=== PATIENT | female | born 1990 | race Caucasian/White ===

== ENCOUNTER 2019-02-15 21:07 | Emergency (ER) | payer OTHER ==
[2019-02-15 21:12] VITALS: BP 112/71; PULSE 80; TEMP 98; BMI 29.2
--- NOTE | 2019-02-15 21:12 | PDOC ---
Rapid Medical Evaluation Time Seen by Provider: 02/15/19 21:09 Medical Evaluation: 02/15/19 21:09 I have performed a brief in-person evaluation of this patient. The patient presents with a chief complaint of: 4-5 days of dizziness, "stabbing" pain between R side of chest and arm, intermittent ESPINOZA, denies PMH. reports hx of ESPINOZA in the past "like, normally". 8/10 pain in ED. denies photophobia Hx of plastic surgery (breast and tummy tuck) 5 years ago. Pertinent physical exam findings: well appearing, NAD, VSS I have ordered the following: EKG The patient will proceed to the ED for further evaluation.
--- NOTE | 2019-02-15 23:04 | PDOC ---
*Physical Exam - Vital Signs Last Vital Signs Temp Pulse Resp BP Pulse Ox 98 F 80 18 112/71 100 02/15/19 21:11 02/15/19 21:11 02/15/19 21:11 02/15/19 21:11 02/15/19 21:11 ED Treatment Course - LABORATORY CBC & Chemistry Diagram: 02/16/19 01:10 Medical Decision Making - Medical Decision Making 02/15/19 23:04 Patient seen by the advanced practice provider under my direct supervision. Ancillary testing reviewed as necessary. I agree with plan as outlined by the advanced practice provider. *DC/Admit/Observation/Transfer Diagnosis at time of Disposition: Lightheaded - Discharge Dispostion Disposition: HOME Condition at time of disposition: Stable - Referrals - Patient Instructions Printed Discharge Instructions: DI for Dizziness-Nonvertigo Additional Instructions: Thank you for choosing [facility]. It was a pleasure taking care of you. Your labs were normal Your EKG appeared abnormal (this could be your baseline), but recommend you follow-up with your doctor Return to the Emergency Department if your symptoms worsen or persist, you have fever, shortness of breath, chest pain, severe abdominal pain, vomiting or other concerning symptoms. - Post Discharge Activity
--- NOTE | 2019-02-16 00:33 | PDOC ---
History of Present Illness - General Chief Complaint: Lightheaded Stated Complaint: PAIN Time Seen by Provider: 02/15/19 21:09 History Source: Patient Exam Limitations: No Limitations Past History - Past Medical History Allergies/Adverse Reactions: Allergies Allergy/AdvReac Type Severity Reaction Status Date / Time No Known Allergies Allergy Verified 02/15/19 21:10 COPD: No - Suicide/Smoking/Psychosocial Hx Smoking History: Never smoked *Physical Exam - Vital Signs Last Vital Signs Temp Pulse Resp BP Pulse Ox 98 F 80 18 112/71 100 02/15/19 21:11 02/15/19 21:11 02/15/19 21:11 02/15/19 21:11 02/15/19 21:11 - Physical Exam General Appearance: No: Apparent Distress Respiratory/Chest: positive: Lungs Clear, Normal Breath Sounds. negative: Chest Tender, Respiratory Distress Cardiovascular: positive: Regular Rhythm, Regular Rate, S1, S2. negative: Murmur Gastrointestinal/Abdominal: positive: Normal Bowel Sounds, Soft. negative: Tender, Distended, Guarding, Rebound Extremity: negative: Swelling, Calf Tenderness Integumentary: positive: Normal Color Neurologic: positive: curriculum supervisor II-XII NML intact, Fully Oriented, Alert, Normal Mood/ Affect, Motor Strength / ED Treatment Course - LABORATORY CBC & Chemistry Diagram: 02/16/19 01:10 - ADDITIONAL ORDERS Additional order review: Laboratory Results 02/15/19 02/15/19 23:50 23:50 D-Dimer 269 Urine HCG, Qual Negative - RADIOLOGY Radiology Studies Ordered: Category Date Time Status CHEST PA & LAT [RAD] Stat Radiology 02/16/19 00:26 Ordered Medical Decision Making - Medical Decision Making 28 y/o F with no sig pmh presents with feeling lightheaded x 1 week along with mild nausea. Also rarely, will feel intermittent R shoulder pain radiating to chest; CP is not exertional and comes on randomly without any worsening or alleviating factors. Denies fever, cough, URI sxs, abd pain, n/v/d, urinary complaints, numbness/tingling/weakness of extremities. Denies smoking or drug use. Is on BCP. Denies recent travel UCG negative D-dimer negative EKG shows TWI leads III, aVF, V3 and V4 No prior EKG available for comparison Will repeat EKG; CXR pending 02/16/19 00:31 CXR negative Trop negative Repeat EKG unchanged Heart score of 1 Not suspicious for ACS Given copy of EKG Advised f/u with her PCP 02/16/19 02:34 *DC/Admit/Observation/Transfer Diagnosis at time of Disposition: Lightheaded - Discharge Dispostion Disposition: HOME Condition at time of disposition: Stable Decision to Admit order: No - Referrals - Patient Instructions Printed Discharge Instructions: DI for Dizziness-Nonvertigo Additional Instructions: Thank you for choosing [facility]. It was a pleasure taking care of you. Your labs were normal Your EKG appeared abnormal (this could be your baseline), but recommend you follow-up with your doctor Return to the Emergency Department if your symptoms worsen or persist, you have fever, shortness of breath, chest pain, severe abdominal pain, vomiting or other concerning symptoms. - Post Discharge Activity
[2019-02-16 02:05] LABS: ANION GAP 8 MMOL/L (8-16); BLOOD UREA NITROGEN 14 mg/dL (7-18); CALCIUM 8.7 mg/dL (8.5-10.1); CHLORIDE 108 mmol/L (98-107); CO2 22 mmol/L (21-32); CREATININE 0.5 mg/dL (0.55-1.3); GLUCOSE,RANDOM 79 mg/dL (74-106); POTASSIUM 3.7 mmol/L (3.5-5.1); SODIUM 138 mmol/L (136-145)
--- NOTE | 2019-02-16 13:11 | EKG ---
Test Reason : Blood Pressure : / mmHG Vent. Rate : 071 BPM Atrial Rate : 071 BPM P-R Int : 194 ms QRS Dur : 078 ms QT Int : 386 ms P-R-T Axes : 019 -03 -20 degrees QTc Int : 419 ms NORMAL SINUS RHYTHM SEPTAL INFARCT (CITED ON OR BEFORE 15-FEB-2019) ABNORMAL ECG WHEN COMPARED WITH ECG OF 15-FEB-2019 22:51, NO SIGNIFICANT CHANGE WAS FOUND Confirmed by MARILYN CALZADA, BRAXTON ([id number]) on 02/16/2019 1:11:23 PM Referred By: Confirmed By:BRAXTON SANDERS MD
--- NOTE | 2019-02-16 13:12 | EKG ---
Test Reason : Blood Pressure : / mmHG Vent. Rate : 065 BPM Atrial Rate : 065 BPM P-R Int : 182 ms QRS Dur : 086 ms QT Int : 384 ms P-R-T Axes : 008 006 -32 degrees QTc Int : 399 ms NORMAL SINUS RHYTHM SEPTAL INFARCT , AGE UNDETERMINED T WAVE ABNORMALITY, CONSIDER INFERIOR ISCHEMIA T WAVE ABNORMALITY, CONSIDER ANTERIOR ISCHEMIA ABNORMAL ECG NO PREVIOUS ECGS AVAILABLE Confirmed by MARILYN CALZADA, BRAXTON ([id number]) on 02/16/2019 1:11:44 PM Referred By: Confirmed By:BRAXTON SANDERS MD
== END 2019-02-16 03:12 | disposition home or self-care (01) ==
LOC: JER 21:07
DX: R42 Dizziness and giddiness (principal)
CPT/HCPCS: 36415; 71046-TC-FY; 80048; 84484; 84703; 85379; 93005; 93010; 99282-25